=== PATIENT | female | born 1945 | race Caucasian/White ===

== ENCOUNTER 2023-05-08 11:27 | Outpatient (REF) | payer MEDICARE, BC, SELFPAY ==
[2023-05-10 14:19] LABS: IgA 214 mg/dL (70-320); IgG 476 mg/dL (600-1540); IgM 179 mg/dL (50-300)
[2023-05-16 02:08] LABS: Acetylcholine Receptor Binding 8.14 nmol/L
[2023-05-16 19:03] LABS: Acetylcholine Recept. Blocking 61 (<15)
[2023-05-20 19:58] LABS: Acetylcholine Recep Modulating 91
== END 2023-05-08 11:28 | disposition home or self-care (01) ==
LOC: HO.LAB 11:27
PROVIDERS: Visit Provider Psychiatry & Neurology Neurology
DX: G70.00 Myasthenia gravis without (acute) exacerbation (principal)
CPT/HCPCS: 36415; 80053; 82550; 82784; 83519; 85025; 86334